=== PATIENT | male | born 1970 | race Caucasian/White ===

== ENCOUNTER 2017-08-15 16:53 | Observation (INO) | payer MEDICAID, OTHER ==
[~2017-08-15] VITALS: Ht 185.4 cm; Wt 111.0 kg
[2017-08-15] MEDS ORDERED: normal saline 1000ml 1,000 ML IV ONE (17:12)
[2017-08-15] MEDS ORDERED: nitroGLYCERIN 0.4mg/hour patch TD ONE (17:15)
[2017-08-15] MEDS ORDERED: normal saline 1000ML IV soln IVB ONE (17:15)
[2017-08-15 17:30] LABS: BASOPHILS % (AUTO) 0.7 % (0-1); EOSINOPHILS # (AUTO) 0.1 X10'3 (0-0.9); EOSINOPHILS % (AUTO) 2.4 % (0-6); HEMATOCRIT 41.1 % (42.0-52.0); HEMOGLOBIN 14.4 g/dl (14.0-17.9); LYMPHOCYTES # (AUTO) 1.2 X10'3 (1.1-4.8); LYMPHOCYTES % (AUTO) 22.2 % (21-51); MEAN CORPUSCULAR HEMOGLOBIN 31.7 PG (27.0-31.0); MEAN CORPUSCULAR HGB CONC 35.1 % (33.0-36.5); MEAN CORPUSCULAR VOLUME 90.2 FL (78-98); MEAN PLATELET VOLUME 8.3 FL (7.4-10.4); MONOCYTES # (AUTO) 0.5 X10'3 (0-0.9); MONOCYTES % (AUTO) 8.9 % (2-12); NEUTROPHILS # (AUTO) 3.5 X10'3 (1.8-7.7); NEUTROPHILS % (AUTO) 65.8 % (42-75); PLATELET COUNT 196 X10'3 (140-440); RED BLOOD COUNT 4.56 X10'6 (4.70-6.10); RED CELL DISTRIBUTION WIDTH 13.1 % (11.5-14.5); WHITE BLOOD COUNT 5.3 X10'3 (4.5-11.0)
[2017-08-15] MEDS ORDERED: nitroGLYCERIN 0.2mg/hour patch TD ONE (17:40)
[2017-08-15 17:42] LABS: INR 0.9 INR; PARTIAL THROMBOPLASTIN TIME 29 SECONDS (22-32); PROTHROMBIN TIME 9.8 SECONDS (9.0-12.0)
[2017-08-15 17:53] LABS: ALANINE AMINOTRANSFERASE 47 U/L (12-78); ALBUMIN 3.9 G/DL (3.4-5.0); ALBUMIN/GLOBULIN RATIO 1.3 (1.1-1.5); ALKALINE PHOSPHATASE 45 IU/L (46-116); ANION GAP 10 (8-16); ASPARTATE AMINO TRANSFERASE 14 U/L (10-37); BILIRUBIN,TOTAL 0.5 MG/DL (0.1-1.0); BLOOD UREA NITROGEN 11 MG/DL (7-18); BUN/CREATININE RATIO 9.2 (5.4-32.0); CALCIUM 8.5 MG/DL (8.5-10.1); CHLORIDE 110 MMOL/L (99-107); ETHANOL < 0.010 GM/DL (0.0-0.010); GLUCOSE 124 MG/DL (70-104); LIPASE 101 U/L (73-393); MAGNESIUM 1.8 MG/DL (1.5-2.4); POTASSIUM 3.9 MMOL/L (3.5-5.1); SODIUM 146 MMOL/L (135-145); TOTAL CARBON DIOXIDE 25.7 MMOL/L (24-32); TOTAL PROTEIN 6.8 G/DL (6.4-8.2); eGFR 66 ML/MIN
[2017-08-15] MEDS ORDERED: ENOXAPARIN IV ONE (18:15)
[2017-08-15] MEDS ORDERED: NORMAL SALINE IV ONE (18:15)
[2017-08-15] MEDS ORDERED: enoxaparin 100mg/ml syringe SUBCUT ONE (18:40)
[2017-08-15] MEDS ORDERED: mag hydrox/Alum hydrox/simeth 30ml oral suspension PO PRN (18:45)
[2017-08-15] MEDS ORDERED: HYDROcodone/acetaminophen 5mg/325mg tablet PO PRN (18:45)
[2017-08-15] MEDS ORDERED: acetaminophen 325mg tablet PO PRN ×2 (18:45)
[2017-08-15] MEDS ORDERED: ondansetron/PF 4mg/2ml inj IV PRN (18:45)
[2017-08-15] MEDS ORDERED: aminophylline 250mg/10ml inj. IV PRN (18:45)
[2017-08-15] MEDS ORDERED: magnesium hydroxide 30ml (MOM) UD suspension PO PRN (18:45)
[2017-08-15] MEDS ORDERED: morphine 2 MG/ML inj. syringe IV PRN (18:45)
[2017-08-15] MEDS ORDERED: metoprolol tartrate 1mg/ml inj IV PRN (18:45)
[2017-08-15] MEDS ORDERED: nitroGLYCERIN 0.4mg SUBLingual tab SL PRN (18:45)
[2017-08-15] MEDS ORDERED: regadenoson 0.4mg/5ml syringe IV PRN (18:45)
[2017-08-15 19:18] LABS: HEMOGLOBIN A1C 5.9 % (4.5-6.2)
[2017-08-15] MEDS ORDERED: NO HOME MEDS (20:04)
[2017-08-15] MEDS: metoprolol tartrate 50mg tablet PO SCH (20:09)
[2017-08-15 20:39] LABS: CLARITY,URINE Clear (Clear); COLOR,URINE Yellow (Yellow); GLUCOSE, URINE Negative (Neg); KETONES,URINE Negative (Neg); LEUKOCYTE ESTERASE ,URINE Negative (Neg); NITRITES, URINE Negative (Neg); OCCULT BLOOD,URINE Negative (Neg); PH,URINE 6.5 (4.8-8.0); PROTEIN,URINE Negative (Neg)
[2017-08-15 20:40] LABS: UA COLLECTION TYPE CLN CATCH MIDSTREAM
[2017-08-15 20:45] VITALS: BP 119/74
[2017-08-15 20:49] LABS: URINE AMPHETAMINE SCREEN NEGATIVE (Neg); URINE BARBITUATE SCREEN NEGATIVE (Neg); URINE BENZODIAZEPINES SCREEN NEGATIVE (Neg); URINE CANNABINOID SCREEN NEGATIVE (Neg); URINE COCAINE SCREEN NEGATIVE (Neg); URINE METHADONE SCREEN NEGATIVE (Neg); URINE OPIATE SCREEN NEGATIVE (Neg); URINE PHENCYCLIDINE SCREEN NEGATIVE (Neg)
[2017-08-15] MEDS ORDERED: temazepam 15mg capsule PO PRN (21:00)
[2017-08-15] MEDS ORDERED: atorvastatin 10mg tablet PO SCH (21:00)
[2017-08-15 23:00] VITALS: BP 100/60
[2017-08-16] VITALS (12 sets, daily range): BP systolic 99–120; BP diastolic 58–77
[2017-08-16 05:31] LABS: ALBUMIN 3.5 G/DL (3.4-5.0); ANION GAP 5 (8-16); BLOOD UREA NITROGEN 13 MG/DL (7-18); CALCIUM 8.3 MG/DL (8.5-10.1); CHLORIDE 109 MMOL/L (99-107); CHOL/HDL RATIO 7.2 (0.00-4.99); CHOLESTEROL 152 MG/DL (0-200); GLUCOSE 114 MG/DL (70-104); HDL CHOLESTEROL 21 MG/DL (35-60); LDL CHOLESTEROL 94 MG/DL (50-100); POTASSIUM 4.5 MMOL/L (3.5-5.1); SODIUM 143 MMOL/L (135-145); TOTAL CARBON DIOXIDE 28.7 MMOL/L (24-32); TRIGLYCERIDES 226 MG/DL (20-135); eGFR 60 ML/MIN
[2017-08-16] MEDS: metoprolol tartrate 50mg tablet PO SCH (07:34)
[2017-08-16] MEDS ORDERED: aspirin 81mg tablet.DR PO SCH (08:00)
[2017-08-16] MEDS ORDERED: regadenoson 0.4mg/5ml syringe IV ONE (08:36)
[2017-08-16] MEDS ORDERED: aminophylline inj. 0 ML IV ONE (08:36)
[2017-08-16] MEDS ORDERED: FLU VACC QS2017-18 36MOS UP/PF 60 MCG/0.5 ML SYRINGE IMVAC ONE (10:00)
[2017-08-16] MEDS ORDERED: ACET-812 PO (15:00)
== END 2017-08-16 17:15 | disposition home or self-care (01) ==
LOC: ER 16:53 → ED HOLD 18:58 → PCU 3S 20:39
PROVIDERS: ADMIT Family Medicine; ATTEND Family Medicine
DX: R07.2 Precordial pain (principal); N18.2 Chronic kidney disease, stage 2 (mild); E78.1 Pure hyperglyceridemia; Z23 Encounter for immunization; Z87.442 Personal history of urinary calculi; Z82.49 Family history of ischemic heart disease and other diseases of the circulatory system
CPT/HCPCS: 36415; 71045; 71046; 78452; 80048; 80053; 80061; 80305; 80320; 81003; 83690; 83735; 83880; 84484; 85025; 85610; 85730; 87070; 90471; 93005; 93017; 96360; 96361; 96372; 99285; A9500; G0378; J1650; Q2037; 83036; J0280

== ENCOUNTER 2019-09-29 13:33 | Emergency (ER) | payer MEDICAID, OTHER ==
[~2019-09-29] VITALS: Ht 185.4 cm; Wt 106.8 kg
[~2019-09-29 13:33] MED LIST: ACET-812 PO; DEXA4TAB67 PO
[2019-09-29] MEDS ORDERED: AMOX-422 PO (14:58)
[2019-09-29] MEDS ORDERED: loperamide 2mg capsule PO ONE (15:00)
[2019-09-29 15:29] VITALS: BP 124/73
== END 2019-09-29 15:33 | disposition home or self-care (01) ==
LOC: ER 13:34
DX: H66.91 Otitis media, unspecified, right ear (principal); R19.7 Diarrhea, unspecified; Z98.890 Other specified postprocedural states; Z79.2 Long term (current) use of antibiotics; Z79.899 Other long term (current) drug therapy
CPT/HCPCS: 99283

== ENCOUNTER 2020-12-27 17:51 | Emergency (ER) | payer OTHER ==
[~2020-12-27] VITALS: Ht 185.4 cm; Wt 111.4 kg
[2020-12-27] MEDS ORDERED: normal saline 1000ml 1,000 ML IVB ONE (19:20)
[2020-12-27 19:41] LABS: BASOPHILS % (AUTO) 0.5 % (0-1); EOSINOPHILS # (AUTO) 0.1 X10'3 (0-0.9); EOSINOPHILS % (AUTO) 1.4 % (0-6); HEMATOCRIT 40.9 % (42.0-52.0); HEMOGLOBIN 13.9 g/dl (14.0-17.9); LYMPHOCYTES # (AUTO) 0.9 X10'3 (1.1-4.8); LYMPHOCYTES % (AUTO) 12.3 % (21-51); MEAN CORPUSCULAR HEMOGLOBIN 31.1 PG (27.0-31.0); MEAN CORPUSCULAR HGB CONC 33.9 g/dL (33.0-36.5); MEAN CORPUSCULAR VOLUME 91.7 FL (78-98); MONOCYTES # (AUTO) 0.8 X10'3 (0-0.9); MONOCYTES % (AUTO) 10.8 % (2-12); NEUTROPHILS # (AUTO) 5.2 X10'3 (1.8-7.7); PLATELET COUNT 248 X10'3 (140-440); RED BLOOD COUNT 4.46 X10'6 (4.70-6.10); RED CELL DISTRIBUTION WIDTH 13.4 % (11.5-14.5)
[2020-12-27 20:00] LABS: ALANINE AMINOTRANSFERASE 29 U/L (12-78); ALBUMIN 3.8 G/DL (3.4-5.0); ALKALINE PHOSPHATASE 58 IU/L (46-116); ANION GAP 11 (8-16); ASPARTATE AMINO TRANSFERASE 16 U/L (10-37); BILIRUBIN,TOTAL 1.2 MG/DL (0.1-1.0); BLOOD UREA NITROGEN 16 MG/DL (7-18); BUN/CREATININE RATIO 9.9 (5.4-32.0); CALCIUM 8.6 MG/DL (8.5-10.1); CHLORIDE 103 MMOL/L (99-107); CREATININE 1.62 MG/DL (0.60-1.10); GLUCOSE 144 MG/DL (70-104); POTASSIUM 3.7 MMOL/L (3.5-5.1); SODIUM 140 MMOL/L (135-145); TOTAL CARBON DIOXIDE 25.6 MMOL/L (24-32); TOTAL PROTEIN 7.7 G/DL (6.4-8.2); eGFR 46 ML/MIN
[2020-12-27 21:19] LABS: CLARITY,URINE CLEAR (Clear); COLOR,URINE AMBER (Yellow); GLUCOSE, URINE NEGATIVE (Neg); KETONES,URINE NEGATIVE (Neg); LEUKOCYTE ESTERASE ,URINE NEGATIVE (Neg); NITRITES, URINE NEGATIVE (Neg); OCCULT BLOOD,URINE NEGATIVE (Neg); PH,URINE 5.5 (4.8-8.0); PROTEIN,URINE 30 mg/dl (Neg); UA COLLECTION TYPE URINAL
[2020-12-27 21:27] LABS: MUCUS STRANDS MANY /LPF (Neg)
[2020-12-27 21:28] VITALS: BP 125/96
[2020-12-27 21:29] LABS: BACTERIA,URINE NONE SEEN /HPF (Neg); RBC,URINE NONE SEEN /HPF (0-2); SQUAMOUS EPITHELIAL CELL,UR FEW /LPF (FEW); WBC,URINE 0-4 /HPF (0-4)
[2020-12-28] MEDS ORDERED: HYDR-3965 PO (11:27)
[2020-12-28] MEDS ORDERED: LEVO500T89 PO (11:27)
[2020-12-28] MEDS ORDERED: ONDA4TAB6 PO (11:27)
[2020-12-28] MEDS ORDERED: KETO10TA2 PO (11:27)
[2020-12-28] MEDS ORDERED: TADA20TA PO (11:27)
== END 2020-12-27 21:30 | disposition home or self-care (01) ==
LOC: ER 17:51
DX: R79.89 Other specified abnormal findings of blood chemistry (principal); R10.9 Unspecified abdominal pain; R11.0 Nausea; E86.0 Dehydration; Z87.442 Personal history of urinary calculi; Z79.899 Other long term (current) drug therapy
CPT/HCPCS: 36415; 80053; 81001; 85025; 96360; 99283; J7030

== ENCOUNTER 2020-12-28 08:22 | Emergency (ER) | payer OTHER ==
[~2020-12-28] VITALS: Ht 185.4 cm; Wt 111.4 kg
[2020-12-28] MEDS ORDERED: ketorolac trometh. 30mg/ml inj. IV ONE (09:50)
[2020-12-28] MEDS ORDERED: normal saline 1000ML IV soln IVB ONE (09:50)
[2020-12-28] MEDS ORDERED: ondansetron/PF 4mg/2ml inj IV ONE (09:50)
[2020-12-28] MEDS ORDERED: HYDROmorphone inj. 0.5 MG/0.5 ML DISP.SYRIN IV PRN (09:50)
[2020-12-28 10:00] LABS: BASOPHILS % (AUTO) 0.7 % (0-1); EOSINOPHILS # (AUTO) 0.1 X10'3 (0-0.9); EOSINOPHILS % (AUTO) 1.1 % (0-6); HEMATOCRIT 41.3 % (42.0-52.0); HEMOGLOBIN 14.3 g/dl (14.0-17.9); LYMPHOCYTES # (AUTO) 1.2 X10'3 (1.1-4.8); LYMPHOCYTES % (AUTO) 15.7 % (21-51); MEAN CORPUSCULAR HEMOGLOBIN 31.6 PG (27.0-31.0); MEAN CORPUSCULAR HGB CONC 34.6 g/dL (33.0-36.5); MEAN CORPUSCULAR VOLUME 91.4 FL (78-98); MEAN PLATELET VOLUME 8.1 FL (7.4-10.4); MONOCYTES # (AUTO) 0.9 X10'3 (0-0.9); MONOCYTES % (AUTO) 12.1 % (2-12); NEUTROPHILS # (AUTO) 5.2 X10'3 (1.8-7.7); NEUTROPHILS % (AUTO) 70.4 % (42-75); PLATELET COUNT 240 X10'3 (140-440); RED BLOOD COUNT 4.52 X10'6 (4.70-6.10); RED CELL DISTRIBUTION WIDTH 13.6 % (11.5-14.5); WHITE BLOOD COUNT 7.4 X10'3 (4.5-11.0)
[2020-12-28 10:10] LABS: ALANINE AMINOTRANSFERASE 30 U/L (12-78); ALBUMIN/GLOBULIN RATIO 1.1 (1.1-1.5); ALKALINE PHOSPHATASE 62 IU/L (46-116); ANION GAP 14 (8-16); ASPARTATE AMINO TRANSFERASE 15 U/L (10-37); BILIRUBIN,TOTAL 1.5 MG/DL (0.1-1.0); BLOOD UREA NITROGEN 17 MG/DL (7-18); BUN/CREATININE RATIO 10.6 (5.4-32.0); CALCIUM 8.5 MG/DL (8.5-10.1); CHLORIDE 103 MMOL/L (99-107); GLUCOSE 158 MG/DL (70-104); LIPASE 56 U/L (73-393); POTASSIUM 3.8 MMOL/L (3.5-5.1); SODIUM 139 MMOL/L (135-145); TOTAL CARBON DIOXIDE 22.5 MMOL/L (24-32); TOTAL PROTEIN 7.8 G/DL (6.4-8.2); eGFR 46 ML/MIN
[2020-12-28 10:45] VITALS: BP 122/84
[2020-12-28] MEDS ORDERED: LEVO500T89 PO (11:27)
[2020-12-28] MEDS ORDERED: TADA20TA PO (11:27)
[2020-12-28] MEDS ORDERED: ONDA4TAB6 PO (11:27)
[2020-12-28] MEDS ORDERED: KETO10TA2 PO (11:27)
[2020-12-28] MEDS ORDERED: HYDR-3965 PO (11:27)
== END 2020-12-28 12:06 | disposition home or self-care (01) ==
LOC: ER 08:22
DX: N13.2 Hydronephrosis with renal and ureteral calculous obstruction (principal); Z87.442 Personal history of urinary calculi
CPT/HCPCS: 36415; 74176; 80053; 83690; 85025; 96374; 96375; 99284; J1885; J2405; J7030

== ENCOUNTER 2021-08-06 07:51 | Emergency (ER) | payer OTHER ==
[~2021-08-06] VITALS: Ht 185.4 cm; Wt 115.9 kg
[~2021-08-06 07:51] MED LIST changes: +KETO10TA2 PO; +ONDA4TAB6 PO; +TADA20TA PO
[2021-08-06] MEDS ORDERED: LANTUS SQ (09:13)
[2021-08-06] MEDS ORDERED: nitroGLYCERIN 0.4mg SUBLingual tab SL PRN (12:25)
[2021-08-06] MEDS ORDERED: PANT20TA18 PO (13:25)
[2021-08-06] MEDS ORDERED: pantoprazole 40mg Tablet.DR PO SCH (14:00)
[2021-08-06 14:04] VITALS: BP 117/76
[2021-08-07] MEDS ORDERED: pantoprazole 40mg Tablet.DR PO SCH (07:30)
== END 2021-08-06 14:06 | disposition home or self-care (01) ==
LOC: ER 07:52
DX: T18.128A Food in esophagus causing other injury, initial encounter (principal); E10.9 Type 1 diabetes mellitus without complications; Z86.73 Personal history of transient ischemic attack (TIA), and cerebral infarction without residual deficits; Z87.442 Personal history of urinary calculi; Z79.4 Long term (current) use of insulin; Z79.899 Other long term (current) drug therapy; X58.XXXA Exposure to other specified factors, initial encounter; Y93.89 Activity, other specified; Y92.89 Other specified places as the place of occurrence of the external cause; Y99.8 Other external cause status
CPT/HCPCS: 71045; 99283

== ENCOUNTER 2021-10-11 08:00 | Emergency (ER) | payer OTHER ==
[~2021-10-11] VITALS: Ht 185.4 cm; Wt 101.8 kg
[~2021-10-11 08:00] MED LIST changes: -ACET-812 PO; -DEXA4TAB67 PO; -KETO10TA2 PO; +LANTUS SQ; -ONDA4TAB6 PO; +PANT20TA18 PO; -TADA20TA PO
[2021-10-11] MEDS ORDERED: aspirin 325mg tablet PO ONE (08:45)
[2021-10-11] MEDS ORDERED: LIDOcaine Viscous 15ml cup MM ONE (08:45)
[2021-10-11] MEDS ORDERED: mag hydrox/Alum hydrox/simeth 30ml oral suspension PO ONE (08:45)
[2021-10-11 09:13] LABS: ALANINE AMINOTRANSFERASE 23 U/L (12-78); ALBUMIN 3.9 G/DL (3.4-5.0); ALBUMIN/GLOBULIN RATIO 1.3 (1.1-1.5); ALKALINE PHOSPHATASE 47 IU/L (46-116); ANION GAP 8 (8-16); ASPARTATE AMINO TRANSFERASE 13 U/L (10-37); BILIRUBIN,TOTAL 1.6 MG/DL (0.1-1.0); BLOOD UREA NITROGEN 10 MG/DL (7-18); BUN/CREATININE RATIO 10.2 (5.4-32.0); CALCIUM 8.3 MG/DL (8.5-10.1); CHLORIDE 109 MMOL/L (99-107); CREATININE 0.98 MG/DL (0.60-1.10); GLUCOSE 117 MG/DL (70-104); POTASSIUM 3.5 MMOL/L (3.5-5.1); SODIUM 144 MMOL/L (135-145); TOTAL CARBON DIOXIDE 26.6 MMOL/L (24-32); TOTAL PROTEIN 6.9 G/DL (6.4-8.2); eGFR 82 ML/MIN
[2021-10-11 09:18] LABS: BASOPHILS % (AUTO) 0.4 % (0-1); EOSINOPHILS % (AUTO) 0.3 % (0-6); HEMATOCRIT 39.2 % (42.0-52.0); HEMOGLOBIN 13.7 g/dl (14.0-17.9); LYMPHOCYTES # (AUTO) 0.9 X10'3 (1.1-4.8); LYMPHOCYTES % (AUTO) 14.5 % (21-51); MEAN CORPUSCULAR HEMOGLOBIN 32.1 PG (27.0-31.0); MEAN CORPUSCULAR HGB CONC 34.9 g/dL (33.0-36.5); MEAN PLATELET VOLUME 8.6 FL (7.4-10.4); MONOCYTES # (AUTO) 0.9 X10'3 (0-0.9); MONOCYTES % (AUTO) 14.2 % (2-12); NEUTROPHILS # (AUTO) 4.4 X10'3 (1.8-7.7); NEUTROPHILS % (AUTO) 70.6 % (42-75); PLATELET COUNT 180 X10'3 (140-440); RED BLOOD COUNT 4.26 X10'6 (4.70-6.10); RED CELL DISTRIBUTION WIDTH 14.5 % (11.5-14.5); WHITE BLOOD COUNT 6.3 X10'3 (4.5-11.0)
[2021-10-11] MEDS ORDERED: famotidine 20mg tablet PO ONE (09:35)
[2021-10-11] MEDS ORDERED: pantoprazole 40mg Tablet.DR PO ONE (09:45)
[2021-10-11 09:53] VITALS: BP 116/96
[2021-10-12] MEDS ORDERED: pantoprazole 40mg Tablet.DR PO SCH (07:30)
== END 2021-10-11 09:55 | disposition home or self-care (01) ==
LOC: ER 08:00
DX: K21.9 Gastro-esophageal reflux disease without esophagitis (principal); E11.9 Type 2 diabetes mellitus without complications; Z87.442 Personal history of urinary calculi; Z86.73 Personal history of transient ischemic attack (TIA), and cerebral infarction without residual deficits; Z79.4 Long term (current) use of insulin; Z79.899 Other long term (current) drug therapy
CPT/HCPCS: 36415; 71045; 80053; 83880; 84484; 85025; 93005; 99285

== ENCOUNTER 2023-06-01 18:21 | Observation (INO) | payer OTHER, MEDICAID ==
[~2023-06-01] VITALS: Ht 182.9 cm; Wt 100.0 kg
[2023-06-01 19:17] LABS: BASOPHILS % (AUTO) 0.4 % (0-1); EOSINOPHILS # (AUTO) 0.1 X10'3 (0-0.9); EOSINOPHILS % (AUTO) 2.2 % (0-6); HEMATOCRIT 44.2 % (42.0-52.0); HEMOGLOBIN 14.9 g/dl (14.0-17.9); LYMPHOCYTES # (AUTO) 1.1 X10'3 (1.1-4.8); LYMPHOCYTES % (AUTO) 17.9 % (21-51); MEAN CORPUSCULAR HEMOGLOBIN 31.2 PG (27.0-31.0); MEAN CORPUSCULAR HGB CONC 33.7 g/dL (33.0-36.5); MEAN CORPUSCULAR VOLUME 92.5 FL (78-98); MEAN PLATELET VOLUME 8.8 FL (7.4-10.4); MONOCYTES # (AUTO) 0.6 X10'3 (0-0.9); MONOCYTES % (AUTO) 9.6 % (2-12); NEUTROPHILS # (AUTO) 4.4 X10'3 (1.8-7.7); NEUTROPHILS % (AUTO) 69.9 % (42-75); PLATELET COUNT 210 X10'3 (140-440); RED BLOOD COUNT 4.78 X10'6 (4.70-6.10); RED CELL DISTRIBUTION WIDTH 13.5 % (11.5-14.5); WHITE BLOOD COUNT 6.3 X10'3 (4.5-11.0)
[2023-06-01 19:31] LABS: ALANINE AMINOTRANSFERASE 34 U/L (12-78); ALBUMIN 4.1 G/DL (3.4-5.0); ALBUMIN/GLOBULIN RATIO 1.4 (1.1-1.5); ALKALINE PHOSPHATASE 48 IU/L (46-116); ANION GAP 8 (8-16); ASPARTATE AMINO TRANSFERASE 16 U/L (10-37); BILIRUBIN,TOTAL 1.2 MG/DL (0.1-1.0); BLOOD UREA NITROGEN 16 MG/DL (7-18); BUN/CREATININE RATIO 14.7 (10.0-20.0); CALCIUM 8.6 MG/DL (8.5-10.1); CHLORIDE 103 MMOL/L (99-107); CREATININE 1.09 MG/DL (0.60-1.10); GLUCOSE 151 MG/DL (70-104); LIPASE 25 U/L (16-77); POTASSIUM 3.9 MMOL/L (3.5-5.1); SODIUM 137 MMOL/L (135-145); TOTAL CARBON DIOXIDE 26.3 MMOL/L (24-32); TOTAL PROTEIN 7.1 G/DL (6.4-8.2); eCRCL 89 ML/MIN; eGFR 72 ML/MIN
[2023-06-01 21:49] LABS: APTT 29 SECONDS (22-32); PROTHROMBIN TIME 9.8 SECONDS (9.0-12.0)
[2023-06-01] MEDS ORDERED: iohexol 350MG/ML 100ml bottle IV ONE (22:00)
[2023-06-01 22:10] LABS: INR 0.9 INR
[2023-06-01] MEDS ORDERED: HYDROcodone/acetaminophen 5mg/325mg tablet PO PRN (23:25)
[2023-06-01] MEDS ORDERED: dextrose 50%-water 50ml dispensing syringe IV PRN ×2 (23:25)
[2023-06-01] MEDS ORDERED: DEXTROSE 15 GM of carb/4 tabs (each vial/BOTTLE has 4 tablets) PO PRN ×2 (23:25)
[2023-06-01] MEDS ORDERED: insulin Lispro (HumaLOG) vial - multi-dose SQ SCH (23:25)
[2023-06-01] MEDS ORDERED: acetaminophen 325mg tablet PO PRN ×2 (23:25)
[2023-06-01] MEDS ORDERED: ondansetron/PF 4mg/2ml inj IV PRN (23:25)
[2023-06-01] MEDS ORDERED: magnesium hydroxide 30ml (MOM) UD suspension PO PRN (23:25)
[2023-06-01] MEDS ORDERED: MESSAGE TO PHARMACY PO ONE (23:25)
[2023-06-01] MEDS ORDERED: mag hydrox/Alum hydrox/simeth 30ml oral suspension PO PRN (23:25)
[2023-06-01] MEDS ORDERED: glucagon, human recombinant 1mg kit SUBCUT PRN (23:25)
[2023-06-01] MEDS ORDERED: morphine 2 MG/ML inj. syringe IV PRN ×2 (23:25)
[2023-06-01 23:48] LABS: HEMOGLOBIN A1C 8.2 % (4.5-6.2)
[2023-06-01 23:54] LABS: PRO BRAIN NATRIURETIC PEPTIDE < 30 PG/ML (0-125)
[2023-06-02 00:56] LABS: BILIRUBIN,URINE NEGATIVE (Neg); CLARITY,URINE CLEAR (Clear); GLUCOSE, URINE NEGATIVE (Neg); KETONES,URINE NEGATIVE (Neg); LEUKOCYTE ESTERASE ,URINE NEGATIVE (Neg); OCCULT BLOOD,URINE NEGATIVE (Neg); PROTEIN,URINE TRACE mg/dl (Neg)
[2023-06-02 01:06] LABS: COLOR,URINE DARK YELLOW (Yellow); UA COLLECTION TYPE CLN CATCH MIDSTREAM
[2023-06-02 01:09] LABS: NITRITES, URINE NEGATIVE (Neg)
[2023-06-02 01:32] LABS: MUCUS STRANDS NONE SEEN /LPF (Neg); SQUAMOUS EPITHELIAL CELL,UR FEW /LPF (FEW); TRANSITIONAL EPI CELLS,URINE FEW /HPF
[2023-06-02 01:34] LABS: RBC,URINE 0-2 /HPF (0-2); WBC,URINE 0-4 /HPF (0-4)
[2023-06-02 01:36] LABS: BACTERIA,URINE NONE SEEN /HPF (Neg)
[2023-06-02 07:22] LABS: BASOPHILS % (AUTO) 0.4 % (0-1); EOSINOPHILS # (AUTO) 0.2 X10'3 (0-0.9); EOSINOPHILS % (AUTO) 3.9 % (0-6); HEMATOCRIT 42.7 % (42.0-52.0); HEMOGLOBIN 14.4 g/dl (14.0-17.9); LYMPHOCYTES # (AUTO) 1.2 X10'3 (1.1-4.8); LYMPHOCYTES % (AUTO) 24.8 % (21-51); MEAN CORPUSCULAR HEMOGLOBIN 31.3 PG (27.0-31.0); MEAN CORPUSCULAR HGB CONC 33.8 g/dL (33.0-36.5); MEAN CORPUSCULAR VOLUME 92.6 FL (78-98); MEAN PLATELET VOLUME 8.6 FL (7.4-10.4); MONOCYTES # (AUTO) 0.5 X10'3 (0-0.9); NEUTROPHILS % (AUTO) 60.9 % (42-75); PLATELET COUNT 184 X10'3 (140-440); RED BLOOD COUNT 4.61 X10'6 (4.70-6.10); RED CELL DISTRIBUTION WIDTH 13.3 % (11.5-14.5); WHITE BLOOD COUNT 4.9 X10'3 (4.5-11.0)
[2023-06-02 07:30] VITALS: BP 123/78; PULSE 63; RESP 10; TEMP 98; O2SAT 97
[2023-06-02 07:58] LABS: ALANINE AMINOTRANSFERASE 28 U/L (12-78); ALBUMIN 3.4 G/DL (3.4-5.0); ALBUMIN/GLOBULIN RATIO 1.3 (1.1-1.5); ALKALINE PHOSPHATASE 44 IU/L (46-116); ANION GAP 7 (8-16); ASPARTATE AMINO TRANSFERASE 14 U/L (10-37); BILIRUBIN,TOTAL 1.6 MG/DL (0.1-1.0); BLOOD UREA NITROGEN 16 MG/DL (7-18); CALCIUM 8.2 MG/DL (8.5-10.1); CHLORIDE 106 MMOL/L (99-107); CHOL/HDL RATIO 4.2 (0.00-4.99); CHOLESTEROL 147 MG/DL (0-200); CREATININE 1.07 MG/DL (0.60-1.10); GLUCOSE 125 MG/DL (70-104); HDL CHOLESTEROL 35 MG/DL (35-60); LDL CHOLESTEROL 92 MG/DL (50-100); POTASSIUM 3.5 MMOL/L (3.5-5.1); SODIUM 139 MMOL/L (135-145); TOTAL CARBON DIOXIDE 25.9 MMOL/L (24-32); TRIGLYCERIDES 106 MG/DL (20-135); eCRCL 91 ML/MIN; eGFR 73 ML/MIN
[2023-06-02 08:00] VITALS: BP_SYST 108; BP_SYST 110; BP_SYST 114; BP_DIAS 62; BP_DIAS 70; BP_DIAS 71; PULSE 62; PULSE 64; PULSE 66
[2023-06-02] MEDS ORDERED: clopidogrel 75mg tablet PO SCH (08:00)
[2023-06-02] MEDS ORDERED: docusate sod 100mg capsule PO SCH (08:00)
[2023-06-02] MEDS ORDERED: aspirin 81mg, enteric-coated 1 TAB TABLET.DR PO SCH (08:00)
[2023-06-02] MEDS ORDERED: ATOR10TA70 PO (09:12)
[2023-06-02] MEDS ORDERED: INSU100I31 SQ (09:12)
[2023-06-02] MEDS ORDERED: ASPI-1144 PO (09:12)
[2023-06-02] MEDS ORDERED: METF-517 PO (09:12)
[2023-06-02] MEDS: normal saline 1000ml 1,000 ML IV SCH ×2 (09:25)
[2023-06-02 11:00] VITALS: BP 112/67; PULSE 52; RESP 14; TEMP 97.3; O2SAT 99
[2023-06-02 15:00] VITALS: BP 99/50; PULSE 65; RESP 16; TEMP 98.2; O2SAT 97
[2023-06-02] MEDS ORDERED: CLOP75TA34 PO (16:09)
[2023-06-02] MEDS ORDERED: insulin glargine (Lantus) pen - multi-dose SQ SCH (21:00)
== END 2023-06-02 17:16 | disposition home or self-care (01) ==
LOC: ER 18:21 → ED HOLD 23:27 → PCU 3S 06-02 07:10
PROVIDERS: ADMIT Internal Medicine; ATTEND Internal Medicine
DX: G45.9 Transient cerebral ischemic attack, unspecified (principal); E11.65 Type 2 diabetes mellitus with hyperglycemia; N39.0 Urinary tract infection, site not specified; Z86.73 Personal history of transient ischemic attack (TIA), and cerebral infarction without residual deficits; Z87.442 Personal history of urinary calculi; Z79.02 Long term (current) use of antithrombotics/antiplatelets; Z79.899 Other long term (current) drug therapy
CPT/HCPCS: 36415; 70450; 70496; 70498; 70551; 71045; 80053; 80061; 81001; 82948; 83036; 83690; 83880; 84484; 85025; 85610; 85651; 85730; 87081; 96360; 96361; 99291; G0378; J3490; J7030; Q9967

== ENCOUNTER 2023-10-18 19:42 | Emergency (ER) | payer OTHER, MEDICAID ==
[~2023-10-18] VITALS: Ht 185.4 cm; Wt 106.4 kg
[~2023-10-18 19:42] MED LIST changes: +ASPI-1144 PO; +ATOR10TA70 PO; +CLOP75TA34 PO; +INSU100I31 SQ; -LANTUS SQ; +METF-517 PO; -PANT20TA18 PO
[2023-10-18 22:29] LABS: BASOPHILS % (AUTO) 0.2 % (0-1); EOSINOPHILS % (AUTO) 0 % (0-6); HEMATOCRIT 43.3 % (42.0-52.0); HEMOGLOBIN 15.2 g/dl (14.0-17.9); LYMPHOCYTES # (AUTO) 0.8 X10'3 (1.1-4.8); LYMPHOCYTES % (AUTO) 6.2 % (21-51); MEAN CORPUSCULAR HEMOGLOBIN 31.9 PG (27.0-31.0); MEAN CORPUSCULAR HGB CONC 35.1 g/dL (33.0-36.5); MEAN CORPUSCULAR VOLUME 90.8 FL (78-98); MEAN PLATELET VOLUME 8.6 FL (7.4-10.4); MONOCYTES # (AUTO) 2.3 X10'3 (0-0.9); MONOCYTES % (AUTO) 18.4 % (2-12); NEUTROPHILS # (AUTO) 9.4 X10'3 (1.8-7.7); NEUTROPHILS % (AUTO) 75.2 % (42-75); PLATELET COUNT 156 X10'3 (140-440); RED BLOOD COUNT 4.77 X10'6 (4.70-6.10); RED CELL DISTRIBUTION WIDTH 13.2 % (11.5-14.5); WHITE BLOOD COUNT 12.5 X10'3 (4.5-11.0)
[2023-10-18 22:42] LABS: ALANINE AMINOTRANSFERASE 44 U/L (12-78); ALBUMIN 3.4 G/DL (3.4-5.0); ALBUMIN/GLOBULIN RATIO 0.7 (1.1-1.5); ALKALINE PHOSPHATASE 65 IU/L (46-116); ANION GAP 15 (8-16); ASPARTATE AMINO TRANSFERASE 20 U/L (10-37); BILIRUBIN,TOTAL 2.1 MG/DL (0.1-1.0); BLOOD UREA NITROGEN 20 MG/DL (7-18); BUN/CREATININE RATIO 14.8 (10.0-20.0); CALCIUM 8.4 MG/DL (8.5-10.1); CHLORIDE 97 MMOL/L (99-107); CREATININE 1.35 MG/DL (0.60-1.10); GLUCOSE 142 MG/DL (70-104); POTASSIUM 3.9 MMOL/L (3.5-5.1); SODIUM 133 MMOL/L (135-145); TOTAL CARBON DIOXIDE 21.3 MMOL/L (24-32); eCRCL 74 ML/MIN; eGFR 56 ML/MIN
[2023-10-18 23:04] LABS: BILIRUBIN,URINE SMALL (Neg); CLARITY,URINE CLOUDY (Clear); GLUCOSE, URINE NEGATIVE (Neg); KETONES,URINE >=80 mg/dl (Neg); LEUKOCYTE ESTERASE ,URINE SMALL (Neg); NITRITES, URINE POSITIVE (Neg); OCCULT BLOOD,URINE SMALL (Neg); PROTEIN,URINE 100 mg/dl (Neg)
[2023-10-18 23:12] LABS: UA COLLECTION TYPE CLN CATCH MIDSTREAM
[2023-10-18 23:13] LABS: COLOR,URINE DARK YELLOW (Yellow)
[2023-10-18 23:14] LABS: BACTERIA,URINE 4+ /HPF (Neg); SQUAMOUS EPITHELIAL CELL,UR FEW /LPF (FEW); WBC,URINE 30-50 /HPF (0-4)
[2023-10-18 23:15] LABS: AMORPHOUS URATES 1+; MUCUS STRANDS NONE SEEN /LPF (Neg); TRANSITIONAL EPI CELLS,URINE MODERATE /HPF
[2023-10-19] MEDS ORDERED: LEVO-65 PO (01:36)
[2023-10-19] MEDS ORDERED: ONDA8TAB13 PO (01:38)
[2023-10-19] MEDS: levoFLOXACIN 750MG TABLET PO ONE (02:01)
[2023-10-19] MEDS: ibuprofen tablet 400 MG TABLET PO ONE (02:01)
[2023-10-19] MEDS: acetaminophen 325mg tablet PO ONE (02:01)
[2023-10-19] MEDS: ondansetron 4mg rapidly disintigrating tab PO ONE (02:01)
[2023-10-19] MEDS: CefTRIAXone 1000mg IM Kit (w/lidocaine diluent) IM ONE (02:02)
[2023-10-19 02:44] VITALS: BP 126/69; PULSE 92; RESP 18; TEMP 99.6; O2SAT 98
== END 2023-10-19 02:50 | disposition home or self-care (01) ==
LOC: ER 19:43
DX: N39.0 Urinary tract infection, site not specified (principal); E11.9 Type 2 diabetes mellitus without complications; Z86.73 Personal history of transient ischemic attack (TIA), and cerebral infarction without residual deficits
CPT/HCPCS: 36415; 71045; 80053; 81001; 82948; 83605; 84145; 85025; 87040; 87077; 87088; 87186; 96372; 99284; J0696

== ENCOUNTER 2023-10-24 08:39 | Outpatient (CLI) | payer MEDICAID, OTHER ==
[~2023-10-24 08:39] MED LIST changes: +LEVO-65 PO; +ONDA8TAB13 PO
== END 2023-10-24 23:59 | disposition home or self-care (01) ==
LOC: RAD 08:39
PROVIDERS: ATTEND Nurse Practitioner Family
DX: R56.9 Unspecified convulsions (principal); Z72.820 Sleep deprivation; Z86.73 Personal history of transient ischemic attack (TIA), and cerebral infarction without residual deficits
CPT/HCPCS: 95816

== ENCOUNTER 2024-02-13 07:28 | Outpatient (CLI) | payer MEDICAID ==
[~2024-02-13 07:28] MED LIST changes: -LEVO-65 PO; +ONDA-245 PO; -ONDA8TAB13 PO
[2024-02-13 08:07] LABS: ALANINE AMINOTRANSFERASE 23 U/L (12-78); ALBUMIN 3.7 G/DL (3.4-5.0); ALBUMIN/GLOBULIN RATIO 1.2 (1.1-1.5); ALKALINE PHOSPHATASE 37 IU/L (46-116); ANION GAP 4 (8-16); ASPARTATE AMINO TRANSFERASE 10 U/L (10-37); BILIRUBIN,TOTAL 0.8 MG/DL (0.1-1.0); BLOOD UREA NITROGEN 12 MG/DL (7-18); BUN/CREATININE RATIO 10.6 (10.0-20.0); CALCIUM 8.4 MG/DL (8.5-10.1); CHLORIDE 108 MMOL/L (99-107); CREATININE 1.13 MG/DL (0.60-1.10); GLUCOSE 106 MG/DL (70-104); POTASSIUM 3.8 MMOL/L (3.5-5.1); SODIUM 143 MMOL/L (135-145); TOTAL CARBON DIOXIDE 30.7 MMOL/L (24-32); TOTAL PROTEIN 6.7 G/DL (6.4-8.2); eGFR 68 ML/MIN
[2024-02-13] MEDS ORDERED: iohexol 300mg/ml 100ml inj. ONE (08:47)
== END 2024-02-13 23:59 | disposition home or self-care (01) ==
LOC: RAD 07:28
PROVIDERS: ATTEND Urology
DX: N30.01 Acute cystitis with hematuria (principal); N32.89 Other specified disorders of bladder; Z13.89 Encounter for screening for other disorder
CPT/HCPCS: 36415; 74178; 80053; Q9967

== ENCOUNTER 2024-04-03 22:31 | Emergency (ER) | payer OTHER, MEDICAID ==
[~2024-04-03] VITALS: Ht 185.4 cm; Wt 109.1 kg
[2024-04-03 22:52] LABS: BASOPHILS % (AUTO) 0.7 % (0-1); EOSINOPHILS # (AUTO) 0.1 X10'3 (0-0.9); EOSINOPHILS % (AUTO) 1.3 % (0-6); HEMATOCRIT 43.9 % (42.0-52.0); HEMOGLOBIN 14.6 g/dl (14.0-17.9); LYMPHOCYTES # (AUTO) 1.3 X10'3 (1.1-4.8); LYMPHOCYTES % (AUTO) 27.9 % (21-51); MEAN CORPUSCULAR HGB CONC 33.4 g/dL (33.0-36.5); MEAN CORPUSCULAR VOLUME 92.9 FL (78-98); MEAN PLATELET VOLUME 8.8 FL (7.4-10.4); MONOCYTES # (AUTO) 0.5 X10'3 (0-0.9); MONOCYTES % (AUTO) 10.1 % (2-12); NEUTROPHILS # (AUTO) 2.9 X10'3 (1.8-7.7); PLATELET COUNT 195 X10'3 (140-440); RED BLOOD COUNT 4.72 X10'6 (4.70-6.10); WHITE BLOOD COUNT 4.8 X10'3 (4.5-11.0)
[2024-04-03 22:59] LABS: BILIRUBIN,URINE NEGATIVE (Neg); CLARITY,URINE CLEAR (Clear); COLOR,URINE YELLOW (Yellow); GLUCOSE, URINE NEGATIVE (Neg); KETONES,URINE NEGATIVE (Neg); LEUKOCYTE ESTERASE ,URINE NEGATIVE (Neg); NITRITES, URINE NEGATIVE (Neg); OCCULT BLOOD,URINE NEGATIVE (Neg); PROTEIN,URINE NEGATIVE (Neg); UROBILINOGEN,URINE 0.2 E.U/dL (0.2-1.0)
[2024-04-03 23:00] LABS: UA COLLECTION TYPE VOIDED
[2024-04-03 23:06] LABS: ALANINE AMINOTRANSFERASE 24 U/L (12-78); ALBUMIN 4.2 G/DL (3.4-5.0); ALBUMIN/GLOBULIN RATIO 1.4 (1.1-1.5); ALKALINE PHOSPHATASE 48 IU/L (46-116); ANION GAP 11 (8-16); ASPARTATE AMINO TRANSFERASE 13 U/L (10-37); BILIRUBIN,TOTAL 0.9 MG/DL (0.1-1.0); BLOOD UREA NITROGEN 11 MG/DL (7-18); BUN/CREATININE RATIO 9.3 (10.0-20.0); CALCIUM 8.6 MG/DL (8.5-10.1); CHLORIDE 107 MMOL/L (99-107); CREATININE 1.18 MG/DL (0.60-1.10); GLUCOSE 144 MG/DL (70-104); POTASSIUM 3.8 MMOL/L (3.5-5.1); SODIUM 144 MMOL/L (135-145); TOTAL CARBON DIOXIDE 26.4 MMOL/L (24-32); TOTAL PROTEIN 7.2 G/DL (6.4-8.2); eCRCL 84 ML/MIN; eGFR 65 ML/MIN
[2024-04-03 23:19] LABS: LIPASE 72 U/L (16-77)
[2024-04-03] MEDS: mag hydrox/Alum hydrox/simeth 30ml oral suspension PO ONE (23:25)
[2024-04-03] MEDS: LIDOcaine 2% Viscous 15ml cup MM PRN (23:25)
[2024-04-03 23:28] VITALS: TEMP 98.5
[2024-04-04] MEDS ORDERED: SUCR1TAB34 PO (00:05)
[2024-04-04 00:11] VITALS: BP 123/81; PULSE 57; RESP 16; O2SAT 95
== END 2024-04-04 00:19 | disposition home or self-care (01) ==
LOC: ER 22:31
DX: K29.70 Gastritis, unspecified, without bleeding (principal); K21.9 Gastro-esophageal reflux disease without esophagitis; E11.9 Type 2 diabetes mellitus without complications; Z79.82 Long term (current) use of aspirin; Z79.4 Long term (current) use of insulin; Z79.899 Other long term (current) drug therapy; Z79.84 Long term (current) use of oral hypoglycemic drugs
CPT/HCPCS: 36415; 71045; 80053; 81003; 82948; 83690; 84484; 85025; 93005; 99285

== ENCOUNTER 2024-04-09 22:21 | Emergency (ER) | payer OTHER, MEDICAID ==
[~2024-04-09] VITALS: Ht 185.4 cm; Wt 109.1 kg
[~2024-04-09 22:21] MED LIST changes: +SUCR1TAB34 PO
[2024-04-09 22:47] LABS: BASOPHILS % (AUTO) 0.7 % (0-1); EOSINOPHILS # (AUTO) 0.1 X10'3 (0-0.9); EOSINOPHILS % (AUTO) 1.5 % (0-6); HEMATOCRIT 43.1 % (42.0-52.0); HEMOGLOBIN 14.5 g/dl (14.0-17.9); LYMPHOCYTES # (AUTO) 1.4 X10'3 (1.1-4.8); LYMPHOCYTES % (AUTO) 28.3 % (21-51); MEAN CORPUSCULAR HGB CONC 33.7 g/dL (33.0-36.5); MEAN CORPUSCULAR VOLUME 92.2 FL (78-98); MEAN PLATELET VOLUME 8.7 FL (7.4-10.4); MONOCYTES # (AUTO) 0.5 X10'3 (0-0.9); MONOCYTES % (AUTO) 10.2 % (2-12); NEUTROPHILS % (AUTO) 59.3 % (42-75); PLATELET COUNT 196 X10'3 (140-440); RED BLOOD COUNT 4.67 X10'6 (4.70-6.10); RED CELL DISTRIBUTION WIDTH 13.3 % (11.5-14.5)
[2024-04-09 22:51] LABS: ALANINE AMINOTRANSFERASE 29 U/L (12-78); ALBUMIN 4.3 G/DL (3.4-5.0); ALBUMIN/GLOBULIN RATIO 1.4 (1.1-1.5); ALKALINE PHOSPHATASE 50 IU/L (46-116); ANION GAP 8 (8-16); ASPARTATE AMINO TRANSFERASE 20 U/L (10-37); BLOOD UREA NITROGEN 16 MG/DL (7-18); BUN/CREATININE RATIO 13.7 (10.0-20.0); CALCIUM 8.7 MG/DL (8.5-10.1); CHLORIDE 106 MMOL/L (99-107); CREATININE 1.17 MG/DL (0.60-1.10); GLUCOSE 108 MG/DL (70-104); POTASSIUM 4.1 MMOL/L (3.5-5.1); SODIUM 142 MMOL/L (135-145); TOTAL CARBON DIOXIDE 28.5 MMOL/L (24-32); TOTAL PROTEIN 7.3 G/DL (6.4-8.2); eCRCL 84 ML/MIN; eGFR 66 ML/MIN
[2024-04-09 23:00] LABS: PRO BRAIN NATRIURETIC PEPTIDE < 30 PG/ML (0-125)
[2024-04-09] MEDS: pantoprazole 40mg Tablet.DR PO ONE (23:20)
[2024-04-09] MEDS: mag hydrox/Alum hydrox/simeth 30ml oral suspension PO ONE (23:20)
[2024-04-09] MEDS: LIDOcaine 2% Viscous 15ml cup MM ONE (23:20)
[2024-04-09] MEDS: famotidine 20mg tablet PO ONE (23:20)
[2024-04-09] MEDS ORDERED: FAMO-129 PO (23:46)
[2024-04-10] VITALS: BP 112/70; PULSE 65; RESP 16; TEMP 98.5; O2SAT 97
== END 2024-04-10 00:02 | disposition home or self-care (01) ==
LOC: ER 22:21
DX: K29.70 Gastritis, unspecified, without bleeding (principal); R07.9 Chest pain, unspecified; E11.9 Type 2 diabetes mellitus without complications; Z79.82 Long term (current) use of aspirin; Z79.899 Other long term (current) drug therapy; Z79.4 Long term (current) use of insulin; Z79.84 Long term (current) use of oral hypoglycemic drugs; Z86.73 Personal history of transient ischemic attack (TIA), and cerebral infarction without residual deficits; Z87.442 Personal history of urinary calculi
CPT/HCPCS: 36415; 71045; 80053; 83880; 84484; 85025; 93005; 99285

== ENCOUNTER 2024-04-26 13:10 | Emergency (ER) | payer OTHER, MEDICAID ==
[~2024-04-26] VITALS: Ht 185.4 cm; Wt 106.8 kg
[~2024-04-26 13:10] MED LIST changes: +FAMO-129 PO
[2024-04-26 14:39] LABS: ALANINE AMINOTRANSFERASE 31 U/L (12-78); ALBUMIN 3.8 G/DL (3.4-5.0); ALBUMIN/GLOBULIN RATIO 1.3 (1.1-1.5); ALKALINE PHOSPHATASE 41 IU/L (46-116); ANION GAP 13 (8-16); ASPARTATE AMINO TRANSFERASE 18 U/L (10-37); BILIRUBIN,TOTAL 2.6 MG/DL (0.1-1.0); BLOOD UREA NITROGEN 19 MG/DL (7-18); BUN/CREATININE RATIO 16.1 (10.0-20.0); CALCIUM 7.9 MG/DL (8.5-10.1); CHLORIDE 106 MMOL/L (99-107); CREATININE 1.18 MG/DL (0.60-1.10); GLUCOSE 115 MG/DL (70-104); LIPASE 21 U/L (16-77); POTASSIUM 3.9 MMOL/L (3.5-5.1); SODIUM 139 MMOL/L (135-145); TOTAL CARBON DIOXIDE 20.3 MMOL/L (24-32); TOTAL PROTEIN 6.8 G/DL (6.4-8.2); eCRCL 84 ML/MIN; eGFR 65 ML/MIN
[2024-04-26 15:17] LABS: EOSINOPHILS % (AUTO) 0.2 % (0-6); LYMPHOCYTES # (AUTO) 0.2 X10'3 (1.1-4.8); NEUTROPHILS # (AUTO) 5.3 X10'3 (1.8-7.7); WHITE BLOOD COUNT 5.9 X10'3 (4.5-11.0)
[2024-04-26 15:19] LABS: BASOPHILS % (AUTO) 0.2 % (0-1); HEMATOCRIT 45.5 % (42.0-52.0); HEMOGLOBIN 15.5 g/dl (14.0-17.9); LYMPHOCYTES % (AUTO) 2.6 % (21-51); MEAN CORPUSCULAR HEMOGLOBIN 31.9 PG (27.0-31.0); MEAN CORPUSCULAR HGB CONC 34.1 g/dL (33.0-36.5); MEAN CORPUSCULAR VOLUME 93.5 FL (78-98); MEAN PLATELET VOLUME 9.4 FL (7.4-10.4); MONOCYTES # (AUTO) 0.5 X10'3 (0-0.9); MONOCYTES % (AUTO) 8.3 % (2-12); NEUTROPHILS % (AUTO) 88.7 % (42-75); PLATELET COUNT 150 X10'3 (140-440); RED BLOOD COUNT 4.87 X10'6 (4.70-6.10); RED CELL DISTRIBUTION WIDTH 13.3 % (11.5-14.5)
[2024-04-26 15:45] LABS: BILIRUBIN,URINE NEGATIVE (Neg); CLARITY,URINE CLEAR (Clear); COLOR,URINE YELLOW (Yellow); GLUCOSE, URINE NEGATIVE (Neg); KETONES,URINE 15 mg/dl (Neg); LEUKOCYTE ESTERASE ,URINE NEGATIVE (Neg); NITRITES, URINE NEGATIVE (Neg); OCCULT BLOOD,URINE NEGATIVE (Neg); PROTEIN,URINE NEGATIVE (Neg); UROBILINOGEN,URINE 0.2 E.U/dL (0.2-1.0)
[2024-04-26 15:50] LABS: UA COLLECTION TYPE CLN CATCH MIDSTREAM
[2024-04-26 16:30] VITALS: TEMP 98.9
[2024-04-26] MEDS ORDERED: ONDA-243 PO (17:57)
[2024-04-26] MEDS: LIDOcaine 2% Viscous 15ml cup MM ONE (18:05)
[2024-04-26] MEDS: mag hydrox/Alum hydrox/simeth 30ml oral suspension PO ONE (18:05)
[2024-04-26] MEDS: ondansetron/PF 4mg/2ml inj IV ONE (18:06)
[2024-04-26] MEDS: morphine 4 MG/ML inj SYRINge IV ONE (18:06)
[2024-04-26] MEDS: normal saline 1000ML IV soln IVB ONE (18:07)
[2024-04-26 19:09] VITALS: BP 113/62; PULSE 87; RESP 16; O2SAT 99
== END 2024-04-26 19:11 | disposition home or self-care (01) ==
LOC: ER 13:11
DX: K29.00 Acute gastritis without bleeding (principal); R10.10 Upper abdominal pain, unspecified; E11.9 Type 2 diabetes mellitus without complications; Z79.82 Long term (current) use of aspirin; Z79.899 Other long term (current) drug therapy; Z79.84 Long term (current) use of oral hypoglycemic drugs; Z86.73 Personal history of transient ischemic attack (TIA), and cerebral infarction without residual deficits; Z87.19 Personal history of other diseases of the digestive system; Z87.440 Personal history of urinary (tract) infections
CPT/HCPCS: 36415; 80053; 81003; 83690; 85025; 96361; 96374; 96375; 99285; J2270; J2405; J7030

== ENCOUNTER 2025-03-04 17:42 | Emergency (ER) | payer OTHER, MEDICAID ==
[~2025-03-04] VITALS: Ht 185.4 cm; Wt 109.1 kg
[~2025-03-04 17:42] MED LIST changes: +ONDA-243 PO
[2025-03-04 17:48] VITALS: TEMP 98.4
[2025-03-04 18:18] LABS: MEAN PLATELET VOLUME 9.6 FL (7.4-10.4); RED CELL DISTRIBUTION WIDTH 12.7 % (11.5-14.5)
[2025-03-04 18:27] LABS: CREATININE 1.08 MG/DL (0.60-1.10); TOTAL CARBON DIOXIDE 25.7 MMOL/L (24-32); eCRCL 90 ML/MIN; eGFR 72 ML/MIN
--- NOTE | 2025-03-04 18:27 | Physician Documentation ---
History of Present Illness Chief Complaint: Abdominal Pain Stated Complaint: ABD PAIN Primary Medical Doctor: Dr Davis [facility] This is a 54-year-old male who presents with a proximally 1 hour of right lower quadrant abdominal pain, patient reports no nausea, vomiting, or diarrhea. Patient reports no fevers. Patient reports history of appendectomy. Patient reports no other acute symptoms or concerns. Patient states his pain actually started in his right flank and then progressed down to his right side of his abdomen in the area of the right lower quadrant. Patient denies any dysuria or urinary frequency or urgency. He denies any fevers or chills in his no other concern or complaint at this time. He does admit to a history of kidney stones states this felt a little similar at 1st but the pain has now abated after a few hours. Medication Reconciliation Allergies: Coded Allergies: No Known Allergies (Unverified , 03/04/25) Scheduled Aspirin (Children's Aspirin), 1 TAB PO DAILY, (Reported) Atorvastatin Calcium (Atorvastatin Calcium), 1 TAB PO DAILY, (Reported) Clopidogrel Bisulfate (Clopidogrel), 75 MG PO DAILY Famotidine (Pepcid), 1 TAB PO Q12H Insulin Glargine,Hum.rec.anlog (Basaglar Kwikpen U-100), 10 UNITS SQ HS, (Reported) Metformin HCl (Metformin HCl ER), 1,000 MG PO BID, (Reported) Ondansetron 8mg ODT (Ondansetron Odt), 1 TAB PO Q8H Sucralfate (Carafate), 1 TAB PO Q6H Scheduled PRN ONDANSETRON ODT 4mg tablet (Ondansetron Odt), 1 TAB PO TID PRN for nausea/vomiting Past Medical History Past Medical History: CVA/TIA/Stroke, Kidney Stones, UTI, Diabetes Past Surgical History: noncontributory, other Alcohol Use: None Drug Use: none Lives with: Spouse Lives In: Home Occupation: employed Review of Systems ROS As stated above in the HPI, otherwise all systems are reviewed and negative. Constitutional: Denies: chills, fever, weakness Eyes: Denies: pain, blurred vision ENT: Denies: ear pain, nose pain, throat pain, mouth pain Respiratory: Denies: cough, shortness of breath Cardiovascular: Denies: chest pain, palpitations Gastrointestinal: Denies: abdominal pain, nausea, vomiting Genitourinary: Denies: burning, dysuria Male Genitalia: Denies: penile discharge, testicular pain Neurological: Denies: headache, dizziness Musculoskeletal: Denies: pain, swelling Integumentary: Denies: rash, lesions Allergic/Immunologic: Denies: hives, itching Hematologic/Lymphatic: Denies: no symptoms reported Psychiatric: Denies: depression, anxiety Physical Exam Vital Signs: Temperature: 98.4, Source: Temporal, Heart Rate: 76, Respiratory Rate: 18, BP: 149/91, Pulse Oximetry: 99, Weight: 109.090 Oxygen Flow Rate: 0 Physical Exam General: Awake and Alert, no acute distress. HEENT: Conjunctiva pink, Sclera clear, Mucus Membranes moist. Neck: Supple without masses and tenderness. Resp: Unlabored. Lungs clear to auscultation bilaterally. Heart: Regular Rate and rhythm, normal S1 and S2 without murmur, rub or gallop. Abdomen: Abdomen is soft, nondistended, no significant tenderness to palpation in the right lower quadrant or any other quadrant. Patient has no CVA tenderness on either side. No rebound or guarding. Extremities: No cyanosis,clubbing or edema. Skin: Warm and Dry. Progress Results/Orders Results/Orders Vital Signs 03/04/25 17:48 Temp 98.4 Pulse 76 Resp 18 B/P (MAP) 149/91 Pulse Ox 99 O2 Flow Rate 0 Laboratory Tests Test 03/04/25 17:57 White Blood Count 5.6 Red Blood Count 4.70 Hemoglobin 15.1 Hematocrit 43.0 Mean Corpuscular Volume 91.6 Mean Corpuscular Hemoglobin 32.1 H Mean Corpuscular Hemoglobin Concent 35.0 Red Cell Distribution Width 12.7 Platelet Count 191 Mean Platelet Volume 9.6 Neutrophils (%) (Auto) 67.7 Lymphocytes (%) (Auto) 22.4 Monocytes (%) (Auto) 7.7 Eosinophils (%) (Auto) 1.3 Basophils (%) (Auto) 0.9 Neutrophils # (Auto) 3.8 Lymphocytes # (Auto) 1.3 Monocytes # (Auto) 0.4 Eosinophils # (Auto) 0.1 Basophils # (Auto) 0.1 CBC Comment Chemistry Comments EKG/XRAY/CT/US/VASC/MRI CT : Impression CAT SCAN Patient: ROXY SOLANO Medical Record: [id number] 1970, Age: 54 Sex: Male Location: ER Patient Status: [facility] ER Service Date/Time: 03/04/251951 Ordering Physician: KATHIA US PAC Exam: CT ABDOMEN PELVIS CT SCAN ABDOMEN AND PELVIS WITHOUT CONTRAST CLINICAL HISTORY: CT KUB rule out kidney stone TECHNIQUE: Helical axial images are obtained from the lung bases through the pelvis without oral contrast. No intravenous contrast was administered. Coronal and sagittal reformatted images were generated from thin section reconstructions. One or more of the following radiation dose reduction techniques were used for this examination: automated exposure control, adjustment of the mA and/or kV according to patient size, use of iterative reconstruction technique. COMPARISON: CT CT ABDOMEN PELVIS on DOS: 02/13/24 FINDINGS: LOWER THORAX: Mild scattered atelectasis/ scarring in the imaged lung bases. ABDOMEN AND PELVIS: Evaluation of visceral and vascular structures is limited due to lack of contrast administration. As visualized, the unenhanced liver, spleen, pancreas and adrenals appear grossly unremarkable. No sizable, radiopaque cholelithiasis or biliary ductal dilatation. No hydroureteronephrosis or sizable, obstructing urinary tract calculi identified time. No evidence of abdominal aortic aneurysm. No evidence of bowel obstruction. The appendix appears to be surgically absent. Moderate volume stool throughout the colon and rectum. No free intraperitoneal air or fluid identified. Bladder wall thickening is again noted. No sizable bladder calculus. No destructive osseous lesions identified. IMPRESSION: No hydroureteronephrosis or sizable, obstructing urinary tract calculi identified. Bladder wall thickening is again noted. Correlate for UTI/cystitis. Electronically Signed by:BISHOP ALEXANDER MD Date & Time: 03/04/252038 Dictated by: BISHOP ALEXANDER MD Dictation date and time: 03/04/252038 Primary Care Provider: NO PRIMARY CARE PROVIDER cc: KATHIA US ~ Medical Decision Making Findings This is a 54-year-old male who presents with a proximally 1 hour of right lower quadrant abdominal pain, patient reports no nausea, vomiting, or diarrhea. Patient reports no fevers. Patient reports history of appendectomy. Patient reports no other acute symptoms or concerns. Patient states his pain actually started in his right flank and then progressed down to his right side of his abdomen in the area of the right lower quadrant. Patient denies any dysuria or urinary frequency or urgency. He denies any fevers or chills in his no other concern or complaint at this time. He does admit to a history of kidney stones states this felt a little similar at 1st but the pain has now abated after a few hours. Patient did have CT scan that was negative for kidney stone. There were no other significant acute processes identified on CT scan. Nothing the clinic correlated clinically. Patient's labs were also largely unremarkable without any sign of urinary tract infection on urinalysis. Patient will follow up with primary care in 1-3 days if no better as needed sooner. Return to ED with any worsening, concerning or changing symptoms. Departure Disposition: HOME / SELF CARE / HOMELESS Impression: Primary Impression: Abdominal pain Qualified Codes: R10.31 - Right lower quadrant pain Condition: Improved Discharge Instructions: Abdominal Pain (Nonspecific) Additional Instructions: Patient did have CT scan that was negative for kidney stone. There were no other significant acute processes identified on CT scan. Nothing the clinic correlated clinically. Patient's labs were also largely unremarkable without any sign of urinary tract infection on urinalysis. Patient will follow up with primary care in 1-3 days if no better as needed sooner. Return to ED with any worsening, concerning or changing symptoms. Referrals: NO PRIMARY CARE PROVIDER (PCP) Signature Scribe Signature: No scribe Attestation: No scribe BRIELLE TO [facility] [employer] Mar 04, 2025 18:27 KATHIA US Mar 04, 2025 21:51
[2025-03-04 19:59] LABS: LEUKOCYTE ESTERASE ,URINE NEGATIVE (Neg); NITRITES, URINE NEGATIVE (Neg); OCCULT BLOOD,URINE NEGATIVE (Neg)
[2025-03-04 20:01] LABS: UA COLLECTION TYPE CLN CATCH MIDSTREAM
[2025-03-04 20:04] LABS: MUCUS STRANDS FEW /LPF (Neg); SQUAMOUS EPITHELIAL CELL,UR FEW /LPF (FEW)
--- NOTE | 2025-03-04 20:42 | RADIOLOGY REPORT ---
CT SCAN ABDOMEN AND PELVIS WITHOUT CONTRAST CLINICAL HISTORY: CT KUB rule out kidney stone TECHNIQUE: Helical axial images are obtained from the lung bases through the pelvis without oral cont rast. No intravenous contrast was administered. Coronal and sagittal reformatted images were generate d from thin section reconstructions. One or more of the following radiation dose reduction techniques were used for this examination: automated exposure control, adjustment of the mA and/or kV according to patient size, use of iterative reconstruction technique. COMPARISON: CT CT ABDOMEN PELVIS on DOS: 02/13/24 FINDINGS: LOWER THORAX: Mild scattered atelectasis/ scarring in the imaged lung bases. ABDOMEN AND PELVIS: Evaluation of visceral and vascular structures is limited due to lack of contrast administration. As visualized, the unenhanced liver, spleen, pancreas and adrenals appear grossly unremarkable. No si zable, radiopaque cholelithiasis or biliary ductal dilatation. No hydroureteronephrosis or sizable, obstructing urinary tract calculi identified time. No evidence of abdominal aortic aneurysm. No evidence of bowel obstruction. The appendix appears to be surgically absent. Moderate volume stool throughout the colon and rectum. No free intraperitoneal air or fluid identified. Bladder wall thickening is again noted. No sizable bladder calculus. No destructive osseous lesions identified. IMPRESSION: No hydroureteronephrosis or sizable, obstructing urinary tract calculi identified. Bladder wall thickening is again noted. Correlate for UTI/cystitis.
[2025-03-04 21:09] VITALS: BP 116/79; PULSE 54; RESP 18; O2SAT 98
== END 2025-03-04 22:03 | disposition home or self-care (01) ==
LOC: ER 17:42
DX: R10.31 Right lower quadrant pain (principal); E11.9 Type 2 diabetes mellitus without complications; Z86.73 Personal history of transient ischemic attack (TIA), and cerebral infarction without residual deficits; Z87.440 Personal history of urinary (tract) infections; Z90.49 Acquired absence of other specified parts of digestive tract; Z79.82 Long term (current) use of aspirin; Z87.442 Personal history of urinary calculi
CPT/HCPCS: 36415; 74176; 80053; 81001; 83690; 85025; 99284

== ENCOUNTER 2025-03-14 15:14 | Emergency (ER) | payer MEDICAID, OTHER ==
[~2025-03-14] VITALS: Ht 185.4 cm; Wt 109.1 kg
[2025-03-14 15:22] VITALS: BP 147/88; PULSE 86; RESP 18; TEMP 98.1; O2SAT 98
[2025-03-14] MEDS ORDERED: AMOX-117 PO (15:37)
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
[2025-03-14] MEDS: TETanus/Pertussis (Acell)/Diphther VAC/PF (Tdap-Adult) 0.5ml syringe IMVAC ONE (15:52)
== END 2025-03-14 15:57 | disposition home or self-care (01) ==
LOC: ER 15:15
DX: S51.851A Open bite of right forearm, initial encounter (principal); E11.9 Type 2 diabetes mellitus without complications; Z86.73 Personal history of transient ischemic attack (TIA), and cerebral infarction without residual deficits; W50.3XXA Accidental bite by another person, initial encounter; Y93.89 Activity, other specified; Y92.89 Other specified places as the place of occurrence of the external cause; Y99.8 Other external cause status
CPT/HCPCS: 90471; 90715; 99283